=== PATIENT | male | born 1935 | race Caucasian/White ===

== ENCOUNTER 2017-08-10 22:56 | Inpatient (IN) ==
--- NOTE | 2017-08-10 23:56 | Emergency Department Note ---
START Narrative - START START: I examined this patient and my medical decision-making was reviewed with the Resident Physician. I agree with the documented findings, disposition and treatment plan as described except to the extent set forth below. 81 year old male with HX of slurred speech and weakness on the right sided of his upper extremity that started at 2119 today, but all the symptoms have compeletely resolved. Patient denies history of strokes. He canchola shave a history of MIs. Keynet states that he was concerned he had a stroke. Laverne was given 2; 81mg ASA . Laverne states that he is having difficulty with word finding at this time. WE will do a TIA r/o CVA workup and kash admit ot medicine.
--- NOTE | 2017-08-11 00:04 | Emergency Department Note ---
Disposition Clinical Impression: Transient cerebral ischemia Qualifiers: Transient cerebral ischemia type: unspecified Qualified Code(s): G45.9 - Transient cerebral ischemic attack, unspecified Disposition: Admitted As Inpatient Condition: Fair Forms: ED Satisfaction Letter Time of Disposition: 01:21 Neuro HPI - General Chief Complaint: ED Neuro Symptoms/Deficit Stated Complaint: rt sided weakness Time Seen by Provider: 08/10/17 23:06 Source: patient, family Limitations: no limitations Nursing Notes Reviewed: Yes Vital Signs Reviewed: Yes - History of Present Illness HPI Narrative: Patient is an 81-year-old male who presents to [facility] ED with a chief complaint of right upper extremity weakness as well as difficulty with word finding and slurred speech. Patient states his symptoms started around 9:30 PM this evening. States his symptoms have pretty much resolved at this time except for the difficulty with word finding. Denies any prior history of CVA. Past medical history significant for AAA with repair, cholecystectomy. Patient is on metoprolol as well as a statin. Patient denies any nausea, vomiting, fever or chills. No recent upper respiratory symptoms, chest pain, difficulty breathing, abdominal pain, problems with urination and bowel movements. Onset of Symptoms Date: 08/11/17 Onset of Symptoms Time: 21:00 Symptom Onset Unknown: No Timing confirmed by: family member Location: speech, right arm History of same: No Severity: mild Quality: weakness Symptoms Improving: No Improves with: none Worsens with: none Associated symptoms: Reports: weakness. Denies: chest pain, cough, fever/chills , headaches, nausea/vomiting, shortness of breath Treatments Prior to Arrival: none - Related Data Allergies/Adverse Reactions: Allergies Allergy/AdvReac Type Severity Reaction Status Date / Time No Known Allergies Allergy Verified 08/10/17 22:58 All systems ED: reviewed and negative except as stated. Past Medical History - Past Medical History Attestation: Yes The following information was validated with the patient. Source: patient Medical history: Reports: aortic aneurysm, hypertension, myocardial infarction Psychiatric history: Reports: no psych history - Social History Smoking Status: Current some day smoker Smokeless Tobacco Status: Yes Alcohol use: Reports: occasionally Physical Exam - General Limitations: no limitations General appearance: alert, in no apparent distress - Head Head exam: atraumatic, normocephalic, normal inspection - Eye Eye exam: Present: normal appearance, EOMI - ENT ENT exam: normal exam, normal oropharynx, mucous membranes moist - Neck Neck exam: Present: normal inspection, full ROM, trachea midline - Chest Chest inspection: Present: normal inspection, symmetric chest wall rise - Respiratory Respiratory exam: Present: normal lung sounds bilaterally - Cardiovascular Cardiovascular exam: Present: bradycardia, normal heart sounds - Abdominal Exam Abdominal exam: Present: soft, Non-Tender. Absent: tenderness, distention, guarding, rebound, rigidity - Extremities Exam Extremities exam: Present: normal inspection, full ROM. Absent: tenderness, pedal edema - Back Exam Back exam: Present: normal inspection - Neurological Exam Neurological exam: Present: alert, oriented X3, CN II-XII intact, normal gait. Absent: motor sensory deficit - Expanded Neurological Exam Patient oriented to: Present: person, place, time Speech: Present: expressive aphasia Cranial nerves: EOM function (II, III, IV, ): Normal, facial sensation (V): Normal, facial palsy (VII): Normal, spinal accessory function (XI): Normal, tongue deviation (XII): Normal Cerebellar function: finger to nose: Normal, heel to monsivais: Normal Cerebellar function: normal gait, Romberg normal Motor strength - LUE: 5/5 Motor strength - RUE: 5/5 Motor strength - LLE: 5/5 Motor strength - RLE: 5/5 Upper motor neuron exam: lokesh neglect: Absent bilaterally, pronator drift: Absent bilaterally Sensory exam upper extremity: light touch: Normal Sensory exam lower extremity: light touch: Normal Coma Scale Eye Opening: Spontaneous Coma Scale Motor Response: Obeys Commands Coma Scale Verbal Response: Oriented Coma Scale Total: 15 - Psychiatric Psychiatric exam: Present: normal affect, normal mood - Skin Skin exam: Present: warm, dry, intact, normal color Course Course Narrative: Patient seen and examined. Preoperatively weakness that has since resolved. Still has mild word finding difficulties. However and able to answer most questions appropriately. CVA workup started. Last known well was at 9:30 PM. However with his rapidly improving symptoms, I do not feel he would benefit from TPA administration. - Reevaluation(s) Reevaluation #1: A d-dimer level was accidentally ordered on this patient and canceled 2 minutes later. However the level was still processed and actually came back elevated at over 2000. However, patient has not had any symptoms of difficulty breathing or chest pain. He has been saturating over 95% on room air. I do not feel this patient has a pulmonary embolus or require CT scanning of the chest. Patient's CT of the head negative. Patient is not on any blood thinning medications normally. He did receive 2 baby aspirin prior to arrival. Will order another 2 baby aspirin to complete the 324 mg dose. Discussed admission with hospitalist Dr. Guevara who has accepted patient for admission. Time: 01:16 Vital Signs Temperature 98.3 F 08/10/17 23:11 Pulse Rate 55 08/10/17 23:11 Respiratory Rate 20 08/10/17 23:11 Blood Pressure 136/71 08/10/17 23:11 O2 Sat by Pulse Oximetry 97 08/10/17 23:11 Temperature 98.3 F 08/10/17 23:11 Pulse Rate 50 08/11/17 00:13 Respiratory Rate 12 08/11/17 00:13 Blood Pressure 127/68 08/11/17 00:13 O2 Sat by Pulse Oximetry 96 08/11/17 00:13 Oxygen Delivery Oxygen Delivery Room Air Neuro Symptoms/Deficit - Medical Records Medical records reviewed: Yes I reviewed the patient's medical records. - Lab Data Lab results reviewed: Yes I reviewed the patient's lab results. Result diagrams: 08/11/17 00:08 08/11/17 00:08 Lab Results 08/11/17 08/11/17 08/11/17 Range/Units 00:08 00:08 00:08 WBC 7.3 (4.3-11.1) K/mcL RBC 4.55 (4.19-5.50) M/mcL Hgb 14.3 (12.9-16.9) g/dL Hct 42.8 (37.5-50.1) % MCV 94.1 (83.0-100.0) fL MCH 31.4 (28.0-33.3) pg MCHC 33.4 (31.6-35.5) g/dL RDW 13.1 (11.5-14.5) % Plt Count 183 (140-400) K/mcL MPV 10.2 (9.4-12.4) fL Immature Gran % 0.3 (0-4) % Seg Neutrophils % 48.3 % Lymphocytes % 34.0 % Monocytes % 11.9 % Eosinophils % 4.1 % Basophils % 1.4 % Neutrophils # 3.5 (1.6-8.9) K/mcL Lymphocytes # 2.5 (0.6-4.6) K/mcL Monocytes # 0.9 (0.0-1.3) K/mcL Eosinophils # 0.3 (0.0-0.6) K/mcL Basophils # 0.1 (0.0-0.2) K/mcL PT 12.0 (9.4-12.1) Seconds INR 1.1 APTT 27.7 (26.0-36.0) Seconds D-Dimer 2044 H (0-500) ng/mLFEU Sodium 141 (136-145) mEq/L Potassium 4.6 H (3.5-4.5) mEq/L Chloride 105 (98-109) mEq/L Carbon Dioxide 29 (19-29) mEq/L BUN 29 H (8-26) mg/dL Creatinine 1.32 H (0.72-1.25) mg/dL Est GFR ( Amer) > 60 (> 60) Est GFR (Non-Af Amer) 52 L (> 60) BUN/Creatinine Ratio 22 (6-26) Glucose 97 (70-99) mg/dL Calculated Osmolality 298 (280-300) Calcium 9.9 (8.6-10.8) mg/dL Troponin I (0-0.03) ng/mL 08/11/17 Range/Units 00:08 WBC (4.3-11.1) K/mcL RBC (4.19-5.50) M/mcL Hgb (12.9-16.9) g/dL Hct (37.5-50.1) % MCV (83.0-100.0) fL MCH (28.0-33.3) pg MCHC (31.6-35.5) g/dL RDW (11.5-14.5) % Plt Count (140-400) K/mcL MPV (9.4-12.4) fL Immature Gran % (0-4) % Seg Neutrophils % % Lymphocytes % % Monocytes % % Eosinophils % % Basophils % % Neutrophils # (1.6-8.9) K/mcL Lymphocytes # (0.6-4.6) K/mcL Monocytes # (0.0-1.3) K/mcL Eosinophils # (0.0-0.6) K/mcL Basophils # (0.0-0.2) K/mcL PT (9.4-12.1) Seconds INR APTT (26.0-36.0) Seconds D-Dimer (0-500) ng/mLFEU Sodium (136-145) mEq/L Potassium (3.5-4.5) mEq/L Chloride (98-109) mEq/L Carbon Dioxide (19-29) mEq/L BUN (8-26) mg/dL Creatinine (0.72-1.25) mg/dL Est GFR ( Amer) (> 60) Est GFR (Non-Af Amer) (> 60) BUN/Creatinine Ratio (6-26) Glucose (70-99) mg/dL Calculated Osmolality (280-300) Calcium (8.6-10.8) mg/dL Troponin I 0.00 (0-0.03) ng/mL - Radiology Data Radiology results reviewed: Yes I reviewed the patient's radiology results. Head CT 08/10/17 23:27 IMPRESSION: No acute intracranial abnormality. Specifically, no CT evidence of an acute infarct. D/ / Joselito Vazquez MD / Joselito Vazquez MD Interpreting Provider: Joselito Vazquez MD - EKG Data EKG attestation: Yes I reviewed and interpreted this EKG. EKG results narrative: EKG done at 20 3:00 shows sinus bradycardia with a first-degree AV block. Normal axis. No acute ST elevation or depression. Findings appear changed from prior EKG done 06/08/2001 with new 1st degree AV block.. NIH Stroke Scale - Level of Consciousness LOC: Alert - LOC Questions LOC Questions: Answers both correctly - LOC Commands LOC Commands: Performs both correctly - Best Gaze Best Gaze: Normal - Visual Visual: No visual loss - Facial Palsy Facial Palsy: Normal - Motor Arms Motor Arm-Left: No drift for 10 seconds Motor Arm-Right: No drift for 10 seconds - Motor Legs Motor Leg-Left: No drift for 5 seconds Motor Leg-Right: No drift for 5 seconds - Limb Ataxia Limb Ataxia: Absent of affected limb too weak to perform exam - Sensory Sensory: Normal - Best Language Best Language: Mild to moderate aphasia. Examiner can identify picture from response - Dysarthria Dysarthria: Normal - Extinction and Inattention Extinction and Inattention: Normal - NIHSS Total Score NIHSS Total Score: 1 TPA Checklist - LKW: 3-4.5 hrs Add. Warnings/Precautions Patient/family understanding: The patient/family members have been counseled and understood the risk, benefit , and alternatives of treatment.
[2017-08-11 00:17] LABS: Basophils # 0.1 K/mcL (0.0-0.2); Basophils % 1.4 %; Eosinophils # 0.3 K/mcL (0.0-0.6); Eosinophils % 4.1 %; Hematocrit 42.8 % (37.5-50.1); Hemoglobin 14.3 g/dL (12.9-16.9); Immature Granulocytes % 0.3 % (0-4); Lymphocytes # 2.5 K/mcL (0.6-4.6); Mean Corpuscular HGB Conc 33.4 g/dL (31.6-35.5); Mean Corpuscular Hemoglobin 31.4 pg (28.0-33.3); Mean Corpuscular Volume 94.1 fL (83.0-100.0); Mean Platelet Volume 10.2 fL (9.4-12.4); Monocytes # 0.9 K/mcL (0.0-1.3); Monocytes % 11.9 %; Neutrophils # 3.5 K/mcL (1.6-8.9); Platelet Count 183 K/mcL (140-400); Red Blood Count 4.55 M/mcL (4.19-5.50); Red Cell Distribution Width 13.1 % (11.5-14.5); Segmented Neutrophils % 48.3 %
[2017-08-11 00:23] LABS: INR 1.1
[2017-08-11 00:26] LABS: Activated Partial Thrombo Time 27.7 Seconds (26.0-36.0)
[2017-08-11 00:29] LABS: BUN/Creatinine Ratio 22 (6-26); Blood Urea Nitrogen 29 mg/dL (8-26); Calcium 9.9 mg/dL (8.6-10.8); Carbon Dioxide 29 mEq/L (19-29); Chloride 105 mEq/L (98-109); Glucose 97 mg/dL (70-99); Osmolality,Calculated 298 (280-300); Potassium 4.6 mEq/L (3.5-4.5); Sodium 141 mEq/L (136-145); eGFR For African Americans > 60 (> 60); eGFR For Non-African Americans 52 (> 60)
[2017-08-11] MEDS ORDERED: Aspirin 81 MG TAB.CHEW PO ONE (01:08)
[2017-08-11] MEDS ORDERED: Aspirin Enteric Coated 81 MG Tablet PO STA (01:36)
[2017-08-11] MEDS ORDERED: Aspirin 81 MG TAB.CHEW ONE (01:47)
[2017-08-11] MEDS ORDERED: *HR* Promethazine 25 MG/ML VIAL IVP PRN (02:54)
[2017-08-11] MEDS ORDERED: *HR* Morphine 2 MG/ML SYRINGE IVP PRN (02:54)
[2017-08-11] MEDS ORDERED: Ondansetron 4 MG/2 ML VIAL IVP PRN (02:54)
[2017-08-11] MEDS ORDERED: Acetaminophen 325 MG TABLET PO PRN (02:54)
[2017-08-11] MEDS ORDERED: *HR* HYDROcodone/Acet 5/325 mg TABLET PO PRN (02:54)
[2017-08-11] MEDS ORDERED: MOM Conc 10 ML UD.LIQ PO PRN (02:54)
[2017-08-11] MEDS ORDERED: Naloxone 0.4 MG/ML INJ IVP PRN (02:54)
--- NOTE | 2017-08-11 03:51 | Internal Med History&Physical ---
Date of Encounter: 08/11/17 Time of Encounter: 02:50 Assessment and Plan (1) Transient cerebral ischemia Current visit: Yes Status: Acute Will place the pt into Tele for observation He is not a candidate for tPA due to improving symptoms and time factor too Since he is ASA naive, will start him on ASA for now Reviewed CT of head - no acute infraction / hemorrhage Will get MRI of brain, 2 D Echo and Carotid doppler in AM Frequent neuro checks resume home med Statin check FLP in AM Qualifiers: Transient cerebral ischemia type: unspecified Qualified Code(s): G45.9 - Transient cerebral ischemic attack, unspecified (2) Hypertension, essential Current visit: Yes Status: Chronic resumed home meds (3) HLD (hyperlipidemia) Current visit: Yes Status: Chronic on statin Qualifiers: Hyperlipidemia type: unspecified Qualified Code(s): E78.5 - Hyperlipidemia , unspecified (4) Tobacco dependence Current visit: Yes Status: Acute counseled to quit smoking / chewing tobacco He refused for nicotine patch Internal Medicine - H&P: HPI Chief complaint: Slurred speech, Rt arm weakness Admitted From: Emergency Dept Plans for Post Hospital Care: Home History of present illness: Mr. Partida is a 81 year old male with known PMH of AAA repair, HTN, chronic tobacco dependence, HLD who presented to [facility] ED with a chief complaint of right upper extremity weakness as well as difficulty with word finding and slurred speech. Patient stated his symptoms started around 9: 30 PM this last night. States his symptoms have pretty much resolved by the time he came to ER except for the difficulty with word finding. Denies any prior history of CVA. When I examined him this morning at 2.45AM, he is alert, awake and O x3, denied any more speech / word finding difficulties. Past Med Surg Social Fam HX - Past Medical History Medical history: aortic aneurysm, hypertension, myocardial infarction Psychiatric history: no psych history - Past Surgical History Surgical History: angioplasty/stent, cholecystectomy - Social History Smoking Status: Current every day smoker (he used to smoke 1PPD unti last month.. Now he is chewing tobacco) Packs per day: 1 Smokeless Tobacco Status: Yes Alcohol use: occasionally Drug use: none - Family History Father Adopted: [place]: [place] Family Member Ethnicity: Non- Living Status: Age at : 77 Cause of : LIVER DISEASE Hx Family Cardiac Disorders: No Hx Family Respiratory Disorders: No Hx Family Cancer: No Hx Family GI Disorders: No Hx Family Genitourinary Disorders: No Hx Family Endocrine Disorder: No Hx Family Musculoskeletal Disorders: No Hx Family Neuromuscular Disorders: No Hx Family Neurologic Disorders: No Hx Family HEENT Disorders: No Hx Family Autoimmune Disorders: No Hx Family Reproductive Disorders: No Hx Family Psychosocial Disorders: No Hx Family Medical Disorders: No - Additional Family History Additional family history: Denied any strokes in the family Internal Medicine - H&P: Meds Simvastatin 80 mg PO DAILY 08/11/17 [History] Toprol Xl 25 mg PO DAILY 08/11/17 [History] 3 Allergy/AdvReac Type Severity Reaction Status Date / Time No Known Allergies Allergy Verified 08/10/17 22:58 All Systems PM: A 10-system review of systems was performed and is negative for pertinent findings except as documented above in the HPI. Review of systems: All the systems are reviewed everything is benign except the systems and symptoms I mentioned in the history of present illness - Constitutional Vitals: Temp Pulse Resp BP Pulse Ox 98.2 F 50 14 137/63 96 08/11/17 02:07 08/11/17 02:07 08/11/17 02:07 08/11/17 02:07 08/11/17 02:07 General appearance: Present: A&O X 3, no acute distress, answers questions appropriately - Head Head exam: Present: atraumatic, normal inspection - Respiratory Respiratory exam: Present: decreased breath sounds. Absent: rales, respiratory distress, rhonchi, wheezes - Cardiovascular Cardiovascular exam: Present: RRR, +S1, +S2. Absent: systolic murmur - GI/Abdominal GI/Abdominal exam: Present: soft. Absent: rebound, rigid - Extremities Exam Extremities exam: Absent: calf tenderness, pedal edema, tenderness - Back Exam Back exam: Absent: CVA tenderness (L), CVA tenderness (R) - Neurological Exam Neurological exam: Present: alert, CN II-XII intact, oriented X3, reflexes normal, no focal deficits, strengths equal and symetr throughout. Absent: pronater drift, facial droop, speech deficit - Psychiatric Psychiatric exam: Present: normal affect, normal mood Internal Med - H&P Results - Labs CBC & Chem 7: 08/11/17 00:08 08/11/17 00:08
[2017-08-11 04:58] LABS: Chol/HDL Ratio 3.6 (0-4.9)
[2017-08-11] MEDS: Aspirin Enteric Coated 81 MG Tablet PO SCH (07:31)
[2017-08-11] MEDS: Metoprolol XL (24 HR) Succ 25 MG TAB.ER.24H PO SCH (08:02)
[2017-08-11] MEDS ORDERED: Aspirin Enteric Coated 81 MG Tablet PO SCH (09:00)
--- NOTE | 2017-08-11 13:51 | Carotid Imaging Report ---
Carotid Duplex Patient Name:Avni Partida Order Number:[id number] Procedure Date:08/11/2017 Date:1935ge:81 yrs Gender:Male Location:[facility] Room #: [id number] Shoes Salesperson:Jose Elias Hunter TITA Referring MD:Cecile Guevara MD Reading MD:Jesu Call MD Primary Indications:TIA Risk Factors Yes/No Hypercholesterolemia Yes Smoking Current Yes Impressions: The bilateral carotid arteries are normal throughout. Recommendations: After imaging the patient returned to their room. Findings Carotid Duplex: Costa scale imaging combined with Doppler flow analysis suggests normal findings bilaterally. Right: The right proximal common carotid artery has a PSV of 82 cm/s and a EDV of 19 cm/s. The right mid common carotid artery has a PSV of 82 cm/s and a EDV of 14 cm/s. The right distal common carotid artery has a PSV of 78 cm/s and a EDV of 19 cm/s. The right bifurcation has a PSV of 56 cm/s and a EDV of 16 cm/s. The right proximal internal carotid artery has a PSV of 65 cm/s and a EDV of 16 cm/s. The right mid internal carotid artery has a PSV of 63 cm/s and a EDV of 21 cm/s. The right distal internal carotid artery has a PSV of 104 cm/s and a EDV of 31 cm/s. The right eca has a PSV of 129 cm/s and a EDV of 12 cm/s. The right vertebral artery has a PSV of 83 cm/s and a EDV of 23 cm/s. Left: The left proximal common carotid artery has a PSV of 86 cm/s and a EDV of 17 cm/s. The left mid common carotid artery has a PSV of 89 cm/s and a EDV of 22 cm/s. The left distal common carotid artery has a PSV of 82 cm/s and a EDV of 21 cm/s. The left bifurcation has a PSV of 71 cm/s and a EDV of 17 cm/s. The left proximal internal carotid artery has a PSV of 81 cm/s and a EDV of 16 cm/s. The left mid internal carotid artery has a PSV of 82 cm/s and a EDV of 26 cm/s. The left distal internal carotid artery has a PSV of 89 cm/s and a EDV of 24 cm/s. The left eca has a PSV of 111 cm/s and a EDV of 10 cm/s. The left vertebral artery has a PSV of 40 cm/s and a EDV of 10 cm/s. Carotid Results Right PSV EDV Assessment Proximal CCA 82 19 Normal Mid CCA 82 14 Normal Distal CCA 78 19 Normal Bifurcation 56 16 Normal Proximal ICA 65 16 Normal Mid ICA 63 21 Normal Distal ICA 104 31 Normal ECA 129 12 Normal Vertebral Artery 83 23 Normal Left PSV EDV Assessment Proximal CCA 86 17 Normal Mid CCA 89 22 Normal Distal CCA 82 21 Normal Bifurcation 71 17 Normal Proximal ICA 81 16 Normal Mid ICA 82 26 Normal Distal ICA 89 24 Normal ECA 111 10 Normal Vertebral Artery 40 10 Normal Ratio's Right ICA/CCA Ratio: 1.27 ICA/CCA Values: 104/82 Left ICA/CCA Ratio: 1.00 ICA/CCA Values: 89/89 Updated by Jesu Call MD on 08/11/2017 1:45:41 PM electronically signed on 08/11/2017 1:46:05 PM with status of Final
--- NOTE | 2017-08-11 16:03 | Event Note ---
Date of Encounter: 08/11/17 Time of Encounter: 15:55 Avni Partida is an 81-year-old male with past medical history hypertension and hyperlipidemia presented to [facility] on 08/11/2017 with complaints of right upper extreme weakness and slurred speech. Brain MRI showed acute CVA. He was admitted for further workup and treatment. 1. Acute CVA: Presented with right arm weakness and slurred speech. ASA given in ED. Brain MRI showed multiple small acute infarcts in the left frontal, lateral and occipital lobes. Bilateral carotid Dopplers normal. TTE with EF 60 %, no cardiac source of emboli. Symptoms now resolved and neurologically back to baseline. Continue ASA, statin. Neurology consulted. 2. DYLLAN: Cr 1.3; baseline appears normal. Trial small bolus. Monitor repeat CMP 3. Elevated D-dimer: D-dimer elevated at 4; unclear why lab was drawn. Denies chest pain, no shortness of breath. Unable to do chest CTA due to AK I. V/Q scan was low probability for pulmonary embolism 4. Hypertension: per hx. BP controlled. Cont home BB. MOnitor BP and titrate PRN 5. Pericardial effusion: Incidentally found. 08/11/17 TTE with a trivial inferior lateral pericardial effusion. Asymptomatic, denies chest pain, no shortness of breath.
[2017-08-11] MEDS ORDERED: 0.9 % Sodium Chloride 1,000 ML IVC ONE (16:04)
--- NOTE | 2017-08-11 18:20 | Neurology - Consult Note ---
Date of Encounter: 08/11/17 Time of Encounter: 18:16 Assessment and Plan (1) CVA (cerebral vascular accident) Current Visit: Yes Status: Acute Patient with acute ischemic infarct involving the left MCA territory, thrombo- embolic or embolic in etiology. No history of atrial fibrillation. Stroke work up is complete baring MRA of brain to confirm if there is stenosis of left MCA. Continue Aspirin 81mg daily and statin therapy. Anticipate patient will likely be released tomorrow. Qualifiers: CVA mechanism: thrombosis Precerebral and cerebral artery: middle cerebral artery Laterality of affected vessel: left Qualified Code(s): I63.312 - Cerebral infarction due to thrombosis of left middle cerebral artery History of Present Illness Chief complaint: right sided weakness and speech difficulty HPI: Mr. Partida is a 81 year old male with PMH significant for CAD, history of aortic valve repair, tobacco use, quit 2-3 months ago who developed acute onset of right sided arm weakness, and speech difficulty yesterday. But the time he arrived to ER here at [facility], his symptoms improved significantly. Determined not to be a candidate for tPA thrombolysis. MRI of brain confirmed ischemic infarct involving the left MCA territory. patient started on Aspirin 81mg daily. carotid artery duplex showed no significant ICA stenosis. Echocardiography showed Impressions: LVEF 60-65%.Normal LV chamber size, wall thickness and function. Mild left ventricular diastolic dysfunction.Normal right ventricular structure and function.No evidence of PFO with agitated saline contrast.No evidence of pulmonary hypertension. No significant valvular dysfunction.There is a trivial inferolateral pericardial effusion present. Patient now reports more than 90% of improvement of his symptoms. Speech is back to normal. Past Med Surg Social Fam HX - Past Medical History Medical history: aortic aneurysm, hypertension, myocardial infarction Psychiatric history: no psych history - Past Surgical History Surgical History: angioplasty/stent, cholecystectomy - Social History Smoking Status: Current every day smoker (he used to smoke 1PPD unti last month.. Now he is chewing tobacco) Packs per day: 1 Smokeless Tobacco Status: Yes Alcohol use: occasionally Drug use: none - Family History Father Adopted: [place]: [place] Family Member Ethnicity: Non- Living Status: Age at : 76 Cause of : LIVER DISEASE Hx Family Cardiac Disorders: No Hx Family Respiratory Disorders: No Hx Family Cancer: No Hx Family GI Disorders: No Hx Family Genitourinary Disorders: No Hx Family Endocrine Disorder: No Hx Family Musculoskeletal Disorders: No Hx Family Neuromuscular Disorders: No Hx Family Neurologic Disorders: No Hx Family HEENT Disorders: No Hx Family Autoimmune Disorders: No Hx Family Reproductive Disorders: No Hx Family Psychosocial Disorders: No Hx Family Medical Disorders: No Medications and Allergies Metoprolol XL (24 HR) Succ [Toprol XL] 25 mg PO DAILY 08/11/17 [History] Simvastatin [Zocor] 40 mg PO DAILY 08/11/17 [History] 3 Allergy/AdvReac Type Severity Reaction Status Date / Time No Known Allergies Allergy Verified 08/10/17 22:58 All Systems: A 10-system review of systems was performed and is negative for pertinent findings except as documented above in the HPI. Physical Examination - Vital Signs Vital Signs: Initial Vital Signs Temp Pulse Resp BP Pulse Ox 98.3 F 55 20 136/71 97 08/10/17 23:11 08/10/17 23:11 08/10/17 23:11 08/10/17 23:11 08/10/17 23:11 - Constitutional General appearance: comfortable - Neurologic Sensorimotor examination: intact Detailed motor examination: grossly full strength in all extremities Motor examination - right side: 5/5: deltoids, biceps, triceps, wrist flexion, wrist extension, staker surveying, hip flexors, tibialis Anterior, quadriceps, toe extension (EHL), plantarflexion Motor examination - left side: 5/5: deltoids, biceps, triceps, wrist flexion, wrist extension, hip flexors, staker surveying, quadriceps, tibialis Anterior, toe extension (EHL), plantarflexion Detailed sensory examination: intact Posture: other (Normal) Reflex and gait examination: intact Reflexes: Biceps: 1+, Triceps: 1+, Brachioradialis: 1+, Patella: 1+, Achilles: 1 + Mental Status Examination: awake, alert, oriented to person, oriented to place, oriented to time, follows commands appropriately, answers questions appropriately, no agnosia, no aphasia, no aproxia Cranial nerve examination: PERRL, EOMI, visual hoang intact, corneal reflexes brisk symmetrically, sensory to face intact, mastication intact, no facial asymmetry is present, no dysarthria, hearing is intact symmetrically, soft palate elevates bilaterally upon phonation, gag reflex intact, flexes SCM and trapezius muscles symmetrically with full power, tongue protrudes midline, no atrophy or facial fasiculations present Results - Laboratory Findings CBC and BMP: 08/11/17 00:08 08/11/17 00:08 Abnormal lab findings: Abnormal lab results D-Dimer 2044 ng/mLFEU (0-500) H 08/11/17 00:08 Potassium 4.6 mEq/L (3.5-4.5) H 08/11/17 00:08 BUN 29 mg/dL (8-26) H 08/11/17 00:08 Creatinine 1.32 mg/dL (0.72-1.25) H 08/11/17 00:08 Est GFR (Non-Af Amer) 52 (> 60) L 08/11/17 00:08 POC Glucose 96 (58-89) H 08/11/17 16:18 HDL Cholesterol 36 mg/dL (40-59) L 08/11/17 03:58 Consult Discharge Plan - Plan Referrals: Fernando De Paz MD [Primary Care Provider] -
--- NOTE | 2017-08-11 19:09 | Electrocardiograph Report ---
[place] [id number] Test Date: 2017-08-10 Pat Name: Avni Partdia Department: 103 Room: 3B54 Gender: M Engineering Recruiter: LAURITA : 1935 Requested By: Kathy Ball Order Number: [id number] Reading MD: Reuben Newman MD Measurements Intervals [place] Rate: 53 P: 91 WI: 231 QRS: 58 QRSD: 102 T: 63 QT: 402 QTc: 384 Interpretive Statements SINUS BRADYCARDIA WITH FIRST DEGREE AV BLOCK Electronically Signed On 08-11-2017 19:08:26 EDT by Reuben Newman MD
[2017-08-11] MEDS: *HR* Heparin 5,000 UNIT/ML VIAL SQ SCH (22:36)
[2017-08-12] MEDS: *HR* Heparin 5,000 UNIT/ML VIAL SQ SCH (05:00)
[2017-08-12 05:48] LABS: Hematocrit 41.3 % (37.5-50.1); Hemoglobin 14.1 g/dL (12.9-16.9); Mean Corpuscular HGB Conc 34.1 g/dL (31.6-35.5); Mean Corpuscular Volume 93.7 fL (83.0-100.0); Mean Platelet Volume 10.2 fL (9.4-12.4); Platelet Count 168 K/mcL (140-400); Red Blood Count 4.41 M/mcL (4.19-5.50); Red Cell Distribution Width 13.1 % (11.5-14.5)
[2017-08-12 06:00] LABS: Hemoglobin A1C 5.4 %
[2017-08-12 06:04] LABS: Alanine Aminotransferase 20 Units/L (0-55); Albumin 3.1 g/dL (3.5-5.0); Alkaline Phosphatase 68 Units/L (38-126); Aspartate Amino Transferase 22 Units/L (5-34); BUN/Creatinine Ratio 22 (6-26); Bilirubin,Total 0.5 mg/dL (0.2-1.2); Blood Urea Nitrogen 23 mg/dL (8-26); Calcium 9.1 mg/dL (8.6-10.8); Carbon Dioxide 27 mEq/L (19-29); Chloride 109 mEq/L (98-109); Globulin 3.2 g/dL (2.4-3.5); Glucose 93 mg/dL (70-99); Osmolality,Calculated 295 (280-300); Potassium 4.3 mEq/L (3.5-4.5); Sodium 141 mEq/L (136-145); Total Protein 6.3 g/dL (6.0-8.3); eGFR For African Americans > 60 (> 60); eGFR For Non-African Americans > 60 (> 60)
[2017-08-12] MEDS: Metoprolol XL (24 HR) Succ 25 MG TAB.ER.24H PO SCH (08:02)
[2017-08-12] MEDS: Aspirin Enteric Coated 81 MG Tablet PO SCH (08:02)
--- NOTE | 2017-08-12 10:11 | Discharge Summary ---
Date of Encounter: 08/12/17 Time of Encounter: 10:04 - Discharge Diagnosis (1) CVA (cerebral vascular accident) Priority: Primary Status: Acute Comments: Avni Partida is an 81-year-old male with past medical history hypertension and hyperlipidemia who presented to [facility] on 08/11/2017 with complaints of right upper extreme weakness and slurred speech. Brain MRI showed acute CVA; evaluated by Neurology who recommended medical management. He was discharged home in stable condition with outpatient follow-up. 1. Acute CVA: Presented with right arm weakness and slurred speech. ASA given in ED. Brain MRI showed multiple small, acute infarcts in the left frontal, lateral and occipital lobes. Brain/head MR non-acute. Bilateral carotid Dopplers normal. TTE with EF 60%, no cardiac source of emboli. Symptoms now resolved and neurologically back to baseline. LDL 80, Hgb A1c 5.4. Continue ASA , statin. Neurology followed. 2. DYLLAN: Cr 1.3; baseline appears normal. Cr normalized weith IV fluids. Recommend repeat CMP with PCP. 3. Elevated D-dimer: D-dimer elevated at 2043. Denied chest pain, no shortness of breath. Unable to do chest CTA due to AK I. V/Q scan with low probability for pulmonary embolism 4. Hypertension: per hx. BP controlled. Cont home BB. Can follow-up with PCP 5. Pericardial effusion: Incidentally found. 08/11/17 TTE with a trivial inferior lateral pericardial effusion. Asymptomatic, denies chest pain, no shortness of breath. Recommended outpatient follow-up with PCP and/or Cardiology for further monitoring Qualifiers: CVA mechanism: thrombosis Precerebral and cerebral artery: middle cerebral artery Laterality of affected vessel: left Qualified Code(s): I63.312 - Cerebral infarction due to thrombosis of left middle cerebral artery (2) Hypertension, essential Priority: Primary Status: Chronic (3) HLD (hyperlipidemia) Priority: Primary Status: Chronic Qualifiers: Hyperlipidemia type: unspecified Qualified Code(s): E78.5 - Hyperlipidemia , unspecified (4) Tobacco dependence Priority: Primary Status: Acute - Discharge Medications Prescriptions: Aspirin Enteric Coated [Aspirin EC] 81 mg PO DAILY #30 tablet.dr Home Medications: Metoprolol XL (24 HR) Succ [Toprol Xl] 25 mg PO DAILY 08/11/17 [History] Simvastatin [Zocor] 40 mg PO DAILY 08/11/17 [History] Aspirin Enteric Coated [Aspirin EC] 81 mg PO DAILY #30 tablet. 08/12/17 [Rx] Allergies/Adverse Reactions: 3 Allergy/AdvReac Type Severity Reaction Status Date / Time No Known Allergies Allergy Verified 08/10/17 22:58 Procedures/tests Complete & Pending: Procedures Performed prior 72 hours Category Date Time Status MR angio head wo con [MR] Routine MRI 08/11/17 18:27 Completed MR angio head wo/w con [MR] Routine MRI 08/12/17 10:02 Ordered Date of admission: 08/11/17 16:23 Primary care physician: Fernando De Paz MD Consults: 08/11/17 16:41 Consult to Physical Therapy [CONS] Routine Comment: Evaluate, develop and implement POC Reason for Consult: Acute CVA OT [Consult to Occupational Therapy] [CONS] Routine Comment: Evaluate, develop and implement POC Reason for Consult: Acute CVA Discharging clinician: Kathy Ball Anticipated date of discharge: 08/12/17 - Patient Status Disposition: Home, Self-Care Condition: Good Functional capacity at discharge: independent ambulation Overall status at discharge: patient is back to baseline - Discharge Instructions Follow Up With: Fernando De Paz MD [Primary Care Provider] - 08/18/17 11:00 am - Diet and Activity Activity: resume usual activities as tolerated Diet: low fat, low cholesterol Interval History: Seen and examined at bedside. Patient says he feels back to baseline and wants to go home today. No numbness tingling, no double or blurred vision. No weakness. Discussed smoking cessation with him strongly encouraged. No chest pain, no shortness of breath no abdominal pain and nausea vomiting or diarrhea. Hospital course: See assessment and plan for hospital course Time spent discussing smoking cessation with patient: 3 to 10 minutes - Time Spent with Patient Total time spent providing and/or coordinating discharge services: Greater than 30 minutes (36 minutes spent on discharge) - Constitutional Vitals: Temp Pulse Resp BP Pulse Ox 98.1 F 56 17 117/64 94 08/12/17 06:58 08/12/17 06:58 08/12/17 06:58 08/12/17 06:58 08/12/17 06:58 General appearance: Present: A&O X 3, no acute distress, answers questions appropriately - Head Head exam: Present: atraumatic, normocephalic - Eye Eye exam: Present: PERRL, conjuntiva pink, sclera anicteric Pupils: Present: PERRL - Neck Neck exam general surgery: Present: supple, trachea midline. Absent: lymphadenopathy - Respiratory Respiratory exam: Present: CTAB. Absent: accessory muscle use, rales, rhonchi, wheezes - Cardiovascular Cardiovascular exam: Present: RRR, +S1, +S2. Absent: diastolic murmur, gallop, rubs, systolic murmur - GI/Abdominal GI/Abdominal exam: Present: normal bowel sounds, soft, no peritoneal signs. Absent: distended, tenderness - Extremities Exam Extremities exam: Present: warm, radial pulses palpable and symmetrical. Absent : calf tenderness, cyanotic, pedal edema - Neurological Exam Neurological exam: Present: CN II-XII intact, oriented X3, no focal deficits. Absent: pronater drift, facial droop, speech deficit - Skin Skin exam: Present: dry, intact
[2017-08-12 10:50] VITALS: BP 129/73
== END 2017-08-12 12:00 | disposition home or self-care (01) | DRG 65 ==
LOC: 3BNU 22:56 → EMEROO 22:56 → 3BNU 08-11 01:54
PROVIDERS: ADMIT Family Medicine; ATTEND Registered Nurse

== ENCOUNTER 2020-10-07 09:20 | Inpatient (IN) ==
[2020-10-07] MEDS ORDERED: Aspirin 81 MG TAB.CHEW PO ONE (09:24)
[2020-10-07 09:47] LABS: Basophils # 0.1 K/mcL (0.0-0.2); Basophils % 1.2 %; Eosinophils # 0.6 K/mcL (0.0-0.6); Eosinophils % 7.9 %; Hematocrit 45.6 % (37.5-50.1); Hemoglobin 15.3 g/dL (12.9-16.9); Immature Granulocytes % 0.3 % (0-4); Lymphocytes # 1.6 K/mcL (0.6-4.6); Mean Corpuscular HGB Conc 33.6 g/dL (31.6-35.5); Mean Corpuscular Volume 98.5 fL (83.0-100.0); Mean Platelet Volume 10.7 fL (9.4-12.4); Monocytes # 0.8 K/mcL (0.0-1.3); Monocytes % 9.6 %; Neutrophils # 4.8 K/mcL (1.6-8.9); Platelet Count 166 K/mcL (140-400); Red Blood Count 4.63 M/mcL (4.19-5.50); Red Cell Distribution Width 12.6 % (11.5-14.5); White Blood Count 7.8 K/mcL (4.3-11.1)
[2020-10-07 09:54] LABS: INR 1.1
[2020-10-07 09:57] LABS: Activated Partial Thrombo Time 33.8 Seconds (26.0-36.0)
[2020-10-07 10:07] LABS: BUN/Creatinine Ratio 21 (6-26); Blood Urea Nitrogen 23 mg/dL (8-23); Calcium 9.2 mg/dL (8.6-10.3); Carbon Dioxide 27 mEq/L (23-29); Chloride 107 mEq/L (98-107); Glucose 90 mg/dL (70-105); Osmolality,Calculated 293 (280-300); Potassium 4.2 mEq/L (3.5-5.1); Sodium 140 mEq/L (136-145); Troponin I < 0.03 ng/mL (< 0.04); eGFR For African Americans > 60 (> 60); eGFR For Non-African Americans > 60 (> 60)
[2020-10-07] MEDS ORDERED: Naloxone 0.4 MG/ML INJ IVP PRN (11:15)
[2020-10-07] MEDS ORDERED: Nitroglycerin 0.4 MG TAB.SUBL SL PRN (12:07)
[2020-10-07] MEDS: *HR* Heparin 5,000 UNIT/ML VIAL SQ SCH (16:56)
[2020-10-07] MEDS ORDERED: GI Cocktail 40 ML EACH PO ONE (23:28)
[2020-10-08 01:12] LABS: Estimated Average Glucose 120 mg/dl; Hemoglobin A1C 5.8 %
[2020-10-08 01:30] LABS: Chol/HDL Ratio 3.3 (0-4.9)
[2020-10-08] MEDS: Ondansetron ODT 4 MG TAB.RAPDIS SL PRN ×2 (03:39→20:44)
[2020-10-08] MEDS ORDERED: Naloxone 0.4 MG/ML INJ IVP PRN (04:24)
[2020-10-08 04:57] LABS: Albumin 3.9 g/dL (3.5-5.7); Albumin/Globulin Ratio 1.4 (1.1-2.2); Bilirubin,Direct 0.1 mg/dL (0.0-0.2); Bilirubin,Indirect 0.5 mg/dL (0.0-1.0); Bilirubin,Total 0.6 mg/dL (0.3-1.0); Globulin 2.8 g/dL (2.4-3.5); Total Protein 6.7 g/dL (6.4-8.9)
[2020-10-08] MEDS: *HR* Heparin 5,000 UNIT/ML VIAL SQ SCH ×2 (05:02→18:12)
[2020-10-08] MEDS: Aspirin Enteric Coated 81 MG Tablet PO SCH (09:03)
[2020-10-08] MEDS: Metoprolol XL (24 HR) Succ 25 MG TAB.ER.24H PO SCH (09:03)
[2020-10-08] MEDS: 0.9 % Sodium Chloride 1,000 ML IVC SCH ×2 (10:49→23:04)
[2020-10-08] MEDS: MetroNIDAZOLE 500 MG/100 ML 500 MG/100 ML BAG IVPB SCH ×2 (10:49→18:12)
[2020-10-09] MEDS: MetroNIDAZOLE 500 MG/100 ML 500 MG/100 ML BAG IVPB SCH ×3 (02:37→18:58)
[2020-10-09] MEDS: *HR* Heparin 5,000 UNIT/ML VIAL SQ SCH ×2 (05:13→16:47)
[2020-10-09] MEDS ORDERED: Regadenoson 0.4 MG/5 ML SYRINGE IVP ONE (05:57)
[2020-10-09] MEDS: Metoprolol XL (24 HR) Succ 25 MG TAB.ER.24H PO SCH (10:55)
[2020-10-09] MEDS: Aspirin Enteric Coated 81 MG Tablet PO SCH (10:55)
[2020-10-09] MEDS: 0.9 % Sodium Chloride 1,000 ML IVC SCH (20:07)
[2020-10-10] MEDS: MetroNIDAZOLE 500 MG/100 ML 500 MG/100 ML BAG IVPB SCH ×3 (03:18→17:50)
[2020-10-10] MEDS: *HR* Heparin 5,000 UNIT/ML VIAL SQ SCH ×2 (06:01→17:30)
[2020-10-10] MEDS: 0.9 % Sodium Chloride 1,000 ML IVC SCH ×2 (11:30→23:06)
[2020-10-10] MEDS ORDERED: hydrALAZINE 10 MG TABLET PO PRN (15:02)
[2020-10-10] MEDS: Aspirin Enteric Coated 81 MG Tablet PO SCH (15:11)
[2020-10-10] MEDS: Metoprolol XL (24 HR) Succ 25 MG TAB.ER.24H PO SCH (15:11)
[2020-10-10 19:12] LABS: Adenovirus Not Detected (Not Detect); Bordetella Pertussis Not Detected (Not Detect); Chlamydophila pneumoniae Not Detected (Not Detect); Coronavirus 229E Not Detected (Not Detect); Coronavirus HKU1 Not Detected (Not Detect); Coronavirus NL63 Not Detected (Not Detect); Coronavirus OC43 Not Detected (Not Detect); Human Metapneumovirus Not Detected (Not Detect); Human Rhinovirus/Enterovirus Not Detected (Not Detect); Influenza A Subtype 2009 H1 Not Detected (Not Detect); Influenza B Not Detected (Not Detect); Mycoplasma pneumoniae Not Detected (Not Detect); Parainfluenza Virus 1 Not Detected (Not Detect); Parainfluenza Virus 2 Not Detected (Not Detect); Parainfluenza Virus 3 Not Detected (Not Detect); Parainfluenza Virus 4 Not Detected (Not Detect); Respiratory Syncytial Virus Not Detected (Not Detect); SARS-CoV-2 Not Detected (Not Detect)
[2020-10-10] MEDS ORDERED: *HR* Propofol 200 MG/20 ML VIAL IVP ONE (21:00)
[2020-10-10] MEDS ORDERED: *HR* FentaNYL (PF) 100 MCG/2 ML VIAL ONE (21:00)
[2020-10-10] MEDS ORDERED: *HR* Rocuronium Bromide 50 MG/5 ML VIAL ONE (21:01)
[2020-10-10] MEDS ORDERED: *HR* Succinylcholine 200 MG/10 ML VIAL IVP ONE (21:01)
[2020-10-10] MEDS ORDERED: Lidocaine -MPF 2% 2 ML VIAL ONE (21:01)
[2020-10-10] MEDS ORDERED: Ondansetron 4 MG/2 ML VIAL IVP PRN (21:24)
[2020-10-10] MEDS ORDERED: *HR* OxyCODONE Immed Rel 5 MG TABLET PO PRN (21:24)
[2020-10-10] MEDS ORDERED: *HR* PHENYLEPHRINE 1,000 MCG/10 ML SYRINGE IVP ONE (21:49)
[2020-10-10] MEDS: *HR* HYDROmorphone PF 0.5 MG/0.5 ML SYRINGE IVP PRN ×4 (22:37→23:01)
[2020-10-10] MEDS ORDERED: *HR* Labetalol 20 MG/4 ML SYRINGE IVP ONE (22:51)
[2020-10-10] MEDS: *HR* Labetalol 20 MG/4 ML SYRINGE IVP PRN ×2 (22:54→23:02)
[2020-10-10] MEDS ORDERED: *HR* Metoprolol 5 MG/5 ML VIAL IVP ONE (22:58)
[2020-10-10] MEDS ORDERED: Ondansetron 4 MG/2 ML VIAL ONE (22:58)
[2020-10-10] MEDS ORDERED: Dexamethasone 4 MG/ML VIAL ONE (22:58)
[2020-10-11] MEDS ORDERED: Naloxone 0.4 MG/ML INJ IVP PRN (02:15)
[2020-10-11] MEDS ORDERED: hydrALAZINE 10 MG TABLET PO PRN (02:15)
[2020-10-11] MEDS ORDERED: *HR* OxyCODONE Immed Rel 5 MG TABLET PO PRN (02:15)
[2020-10-11] MEDS ORDERED: Ondansetron ODT 4 MG TAB.RAPDIS SL PRN (02:15)
[2020-10-11] MEDS ORDERED: Nitroglycerin 0.4 MG TAB.SUBL SL PRN (02:15)
[2020-10-11] MEDS ORDERED: Ondansetron 4 MG/2 ML VIAL IVP PRN (02:15)
[2020-10-11] MEDS: MetroNIDAZOLE 500 MG/100 ML 500 MG/100 ML BAG IVPB SCH ×4 (02:49→20:53)
[2020-10-11] MEDS: *HR* Heparin 5,000 UNIT/ML VIAL SQ SCH ×2 (05:34→17:34)
[2020-10-11] MEDS: 0.9 % Sodium Chloride 1,000 ML IVC SCH ×2 (05:52→23:56)
[2020-10-11 10:18] LABS: Basophils % 0.3 %; Eosinophils % 0.3 %; Hematocrit 46.9 % (37.5-50.1); Hemoglobin 15.9 g/dL (12.9-16.9); Immature Granulocytes % 0.4 % (0-4); Lymphocytes # 0.9 K/mcL (0.6-4.6); Lymphocytes % 8.4 %; Mean Corpuscular HGB Conc 33.9 g/dL (31.6-35.5); Mean Corpuscular Hemoglobin 32.9 pg (28.0-33.3); Mean Corpuscular Volume 97.1 fL (83.0-100.0); Mean Platelet Volume 10.5 fL (9.4-12.4); Monocytes # 0.9 K/mcL (0.0-1.3); Monocytes % 7.9 %; Neutrophils # 9.2 K/mcL (1.6-8.9); Platelet Count 153 K/mcL (140-400); Red Blood Count 4.83 M/mcL (4.19-5.50); Red Cell Distribution Width 12.4 % (11.5-14.5); Segmented Neutrophils % 82.7 %; White Blood Count 11.1 K/mcL (4.3-11.1)
[2020-10-11] MEDS: Aspirin Enteric Coated 81 MG Tablet PO SCH (10:21)
[2020-10-11] MEDS: Metoprolol XL (24 HR) Succ 25 MG TAB.ER.24H PO SCH (10:21)
[2020-10-11] MEDS: Acetaminophen IV 1,000 MG/100 ML BAG IVPB SCH ×3 (14:25→23:57)
[2020-10-12] MEDS: MetroNIDAZOLE 500 MG/100 ML 500 MG/100 ML BAG IVPB SCH ×3 (03:53→20:15)
[2020-10-12] MEDS: Acetaminophen IV 1,000 MG/100 ML BAG IVPB SCH ×3 (05:51→16:45)
[2020-10-12] MEDS: *HR* Heparin 5,000 UNIT/ML VIAL SQ SCH ×2 (05:52→16:36)
[2020-10-12 08:55] LABS: Basophils # 0.1 K/mcL (0.0-0.2); Basophils % 0.6 %; Eosinophils # 0.3 K/mcL (0.0-0.6); Eosinophils % 3.1 %; Hematocrit 45.6 % (37.5-50.1); Hemoglobin 15.1 g/dL (12.9-16.9); Immature Granulocytes % 0.4 % (0-4); Lymphocytes # 1.1 K/mcL (0.6-4.6); Lymphocytes % 10.5 %; Mean Corpuscular HGB Conc 33.1 g/dL (31.6-35.5); Mean Corpuscular Hemoglobin 32.2 pg (28.0-33.3); Mean Corpuscular Volume 97.2 fL (83.0-100.0); Mean Platelet Volume 10.5 fL (9.4-12.4); Neutrophils # 7.8 K/mcL (1.6-8.9); Platelet Count 160 K/mcL (140-400); Red Blood Count 4.69 M/mcL (4.19-5.50); Red Cell Distribution Width 12.4 % (11.5-14.5); Segmented Neutrophils % 75.4 %; White Blood Count 10.3 K/mcL (4.3-11.1)
[2020-10-12] MEDS: Aspirin Enteric Coated 81 MG Tablet PO SCH (13:07)
[2020-10-12] MEDS: Metoprolol XL (24 HR) Succ 25 MG TAB.ER.24H PO SCH (13:08)
[2020-10-12] MEDS: 0.9 % Sodium Chloride 1,000 ML IVC SCH (16:42)
[2020-10-13] MEDS: Acetaminophen IV 1,000 MG/100 ML BAG IVPB SCH ×5 (00:17→23:46)
[2020-10-13 01:36] LABS: Hematocrit 43.2 % (37.5-50.1); Hemoglobin 14.3 g/dL (12.9-16.9); Mean Corpuscular HGB Conc 33.1 g/dL (31.6-35.5); Mean Corpuscular Hemoglobin 32.7 pg (28.0-33.3); Mean Corpuscular Volume 98.9 fL (83.0-100.0); Mean Platelet Volume 10.8 fL (9.4-12.4); Platelet Count 149 K/mcL (140-400); Red Blood Count 4.37 M/mcL (4.19-5.50); Red Cell Distribution Width 12.2 % (11.5-14.5); White Blood Count 9.3 K/mcL (4.3-11.1)
[2020-10-13] MEDS: 0.9 % Sodium Chloride 1,000 ML IVC SCH ×3 (04:16→20:10)
[2020-10-13] MEDS: MetroNIDAZOLE 500 MG/100 ML 500 MG/100 ML BAG IVPB SCH ×3 (04:17→20:09)
[2020-10-13] MEDS: *HR* Heparin 5,000 UNIT/ML VIAL SQ SCH ×2 (06:07→17:48)
[2020-10-13] MEDS: Aspirin Enteric Coated 81 MG Tablet PO SCH (08:02)
[2020-10-13] MEDS: Metoprolol XL (24 HR) Succ 25 MG TAB.ER.24H PO SCH (08:03)
[2020-10-13] MEDS: Metoclopramide 10 MG/2 ML VIAL IVP SCH ×3 (12:48→23:50)
[2020-10-14] MEDS: MetroNIDAZOLE 500 MG/100 ML 500 MG/100 ML BAG IVPB SCH ×3 (03:31→20:54)
[2020-10-14] MEDS: Acetaminophen IV 1,000 MG/100 ML BAG IVPB SCH ×3 (05:34→17:29)
[2020-10-14] MEDS: Metoclopramide 10 MG/2 ML VIAL IVP SCH ×3 (05:57→17:30)
[2020-10-14] MEDS: *HR* Heparin 5,000 UNIT/ML VIAL SQ SCH ×2 (05:57→17:48)
[2020-10-14 06:34] LABS: Hemoglobin 14.8 g/dL (12.9-16.9); Mean Corpuscular HGB Conc 33.6 g/dL (31.6-35.5); Mean Corpuscular Hemoglobin 33.1 pg (28.0-33.3); Mean Corpuscular Volume 98.4 fL (83.0-100.0); Mean Platelet Volume 10.7 fL (9.4-12.4); Platelet Count 155 K/mcL (140-400); Red Blood Count 4.47 M/mcL (4.19-5.50); Red Cell Distribution Width 12.2 % (11.5-14.5); White Blood Count 10.1 K/mcL (4.3-11.1)
[2020-10-14 06:45] LABS: BUN/Creatinine Ratio 28 (6-26); Blood Urea Nitrogen 28 mg/dL (8-23); Calcium 9.2 mg/dL (8.6-10.3); Carbon Dioxide 36 mEq/L (23-29); Chloride 101 mEq/L (98-107); Glucose 91 mg/dL (70-105); Osmolality,Calculated 309 (280-300); Potassium 2.7 mEq/L (3.5-5.1); Sodium 147 mEq/L (136-145); eGFR For African Americans > 60 (> 60); eGFR For Non-African Americans > 60 (> 60)
[2020-10-14] MEDS ORDERED: Potassium Chloride 40 MEQ, Lidocaine 1% 2 ML in 0.9 % Sodium Chloride 500 ML IVPB ONE (07:21)
[2020-10-14] MEDS: Metoprolol XL (24 HR) Succ 25 MG TAB.ER.24H PO SCH (08:24)
[2020-10-14] MEDS: Aspirin Enteric Coated 81 MG Tablet PO SCH (08:24)
[2020-10-14] MEDS ORDERED: Lidocaine -MPF 1% 5 ML AMPUL INFILT ONE (08:43)
[2020-10-14 10:37] LABS: Triglycerides 94 mg/dL (< 150)
[2020-10-14] MEDS ORDERED: *HR* Dextrose 50 % in Water (Vial) 50 ML VIAL IVP PRN (11:13)
[2020-10-14] MEDS ORDERED: D5% in Water 1,000 ML IVC PRN (11:13)
[2020-10-14] MEDS ORDERED: Dextrose Gel 15 GM/37.5 ML TUBE PO PRN ×2 (11:13)
[2020-10-14] MEDS ORDERED: D10% in Water 500 ML IVC PRN (11:15)
[2020-10-14] MEDS ORDERED: Pantoprazole 40 MG VIAL IVP ONE (13:00)
[2020-10-14] MEDS: Insulin LISPRO 300 UNITS/3 ML VIAL SQ SCH ×3 (13:09→21:00)
[2020-10-14 15:00] LABS: Magnesium 1.7 mg/dL (1.6-2.6); Phosphorous 3.2 mg/dL (2.7-4.5)
[2020-10-14 16:32] LABS: BUN/Creatinine Ratio 28 (6-26); Blood Urea Nitrogen 27 mg/dL (8-23); Carbon Dioxide 34 mEq/L (23-29); Chloride 104 mEq/L (98-107); Glucose 91 mg/dL (70-105); Osmolality,Calculated 309 (280-300); Potassium 3.3 mEq/L (3.5-5.1); Sodium 147 mEq/L (136-145); eGFR For African Americans > 60 (> 60); eGFR For Non-African Americans > 60 (> 60)
[2020-10-14] MEDS ORDERED: Clinimix E 5%-15% SOLUTION 2,000 ML with MVI, adult with vitamin K 10 ML IVC SCH (17:00)
[2020-10-14] MEDS: Pantoprazole 40 MG VIAL IVP SCH (17:30)
[2020-10-15] MEDS: Acetaminophen IV 1,000 MG/100 ML BAG IVPB SCH ×4 (00:03→17:15)
[2020-10-15] MEDS: Metoclopramide 10 MG/2 ML VIAL IVP SCH ×4 (00:03→17:14)
[2020-10-15] MEDS: Insulin LISPRO 300 UNITS/3 ML VIAL SQ SCH ×6 (00:04→20:00)
[2020-10-15] MEDS: MetroNIDAZOLE 500 MG/100 ML 500 MG/100 ML BAG IVPB SCH ×3 (04:00→19:50)
[2020-10-15 05:15] LABS: Hematocrit 41.3 % (37.5-50.1); Hemoglobin 13.9 g/dL (12.9-16.9); Mean Corpuscular HGB Conc 33.7 g/dL (31.6-35.5); Mean Corpuscular Hemoglobin 33.6 pg (28.0-33.3); Mean Corpuscular Volume 99.8 fL (83.0-100.0); Mean Platelet Volume 10.3 fL (9.4-12.4); Platelet Count 142 K/mcL (140-400); Red Blood Count 4.14 M/mcL (4.19-5.50); Red Cell Distribution Width 12.4 % (11.5-14.5); White Blood Count 9.7 K/mcL (4.3-11.1)
[2020-10-15 05:34] LABS: BUN/Creatinine Ratio 28 (6-26); Blood Urea Nitrogen 25 mg/dL (8-23); Calcium 8.5 mg/dL (8.6-10.3); Carbon Dioxide 33 mEq/L (23-29); Chloride 104 mEq/L (98-107); Glucose 107 mg/dL (70-105); Magnesium 1.7 mg/dL (1.6-2.6); Osmolality,Calculated 305 (280-300); Phosphorous 3.1 mg/dL (2.7-4.5); Potassium 2.8 mEq/L (3.5-5.1); Sodium 145 mEq/L (136-145); eGFR For African Americans > 60 (> 60); eGFR For Non-African Americans > 60 (> 60)
[2020-10-15] MEDS: Pantoprazole 40 MG VIAL IVP SCH ×2 (06:25→17:14)
[2020-10-15] MEDS: *HR* Heparin 5,000 UNIT/ML VIAL SQ SCH ×2 (06:26→17:20)
[2020-10-15] MEDS ORDERED: Potassium Chloride 40 MEQ, Lidocaine 1% 2 ML in 0.9 % Sodium Chloride 500 ML IVPB ONE ×2 (07:00→13:00)
[2020-10-15] MEDS ORDERED: D5% in Water 1,000 ML IVC SCH (10:00)
[2020-10-15] MEDS ORDERED: Clinimix E 5%-15% SOLUTION 2,000 ML with MVI, adult with vitamin K 10 ML IVC SCH (17:00)
[2020-10-16] MEDS: Acetaminophen IV 1,000 MG/100 ML BAG IVPB SCH ×4 (00:14→18:18)
[2020-10-16] MEDS: Metoclopramide 10 MG/2 ML VIAL IVP SCH ×4 (00:16→18:08)
[2020-10-16 02:24] LABS: BUN/Creatinine Ratio 31 (6-26); Blood Urea Nitrogen 24 mg/dL (8-23); Carbon Dioxide 31 mEq/L (23-29); Chloride 106 mEq/L (98-107); Glucose 101 mg/dL (70-105); Magnesium 1.5 mg/dL (1.6-2.6); Osmolality,Calculated 298 (280-300); Phosphorous 3.9 mg/dL (2.7-4.5); Potassium 3.2 mEq/L (3.5-5.1); Sodium 142 mEq/L (136-145); eGFR For African Americans > 60 (> 60); eGFR For Non-African Americans > 60 (> 60)
[2020-10-16] MEDS: Insulin LISPRO 300 UNITS/3 ML VIAL SQ SCH ×6 (03:38→20:05)
[2020-10-16] MEDS: MetroNIDAZOLE 500 MG/100 ML 500 MG/100 ML BAG IVPB SCH ×3 (04:35→20:06)
[2020-10-16] MEDS: *HR* Heparin 5,000 UNIT/ML VIAL SQ SCH ×2 (04:46→18:07)
[2020-10-16] MEDS: Pantoprazole 40 MG VIAL IVP SCH ×2 (06:02→18:06)
[2020-10-16] MEDS ORDERED: Potassium Chloride 40 MEQ, Lidocaine 1% 2 ML in 0.9 % Sodium Chloride 500 ML IVPB ONE (08:22)
[2020-10-16] MEDS ORDERED: Clinimix E 5%-15% SOLUTION 2,000 ML with MVI, adult with vitamin K 10 ML IVC SCH (17:00)
[2020-10-17] MEDS: Insulin LISPRO 300 UNITS/3 ML VIAL SQ SCH ×7 (00:26→23:53)
[2020-10-17] MEDS: Metoclopramide 10 MG/2 ML VIAL IVP SCH ×3 (00:34→11:39)
[2020-10-17] MEDS: Acetaminophen IV 1,000 MG/100 ML BAG IVPB SCH ×2 (00:35→05:50)
[2020-10-17 02:39] LABS: BUN/Creatinine Ratio 28 (6-26); Blood Urea Nitrogen 23 mg/dL (8-23); Calcium 8.1 mg/dL (8.6-10.3); Carbon Dioxide 30 mEq/L (23-29); Chloride 104 mEq/L (98-107); Glucose 109 mg/dL (70-105); Magnesium 1.9 mg/dL (1.6-2.6); Osmolality,Calculated 288 (280-300); Phosphorous 3.3 mg/dL (2.7-4.5); Potassium 3.2 mEq/L (3.5-5.1); Sodium 137 mEq/L (136-145); eGFR For African Americans > 60 (> 60); eGFR For Non-African Americans > 60 (> 60)
[2020-10-17] MEDS: MetroNIDAZOLE 500 MG/100 ML 500 MG/100 ML BAG IVPB SCH (04:06)
[2020-10-17] MEDS: Pantoprazole 40 MG VIAL IVP SCH ×2 (05:36→18:54)
[2020-10-17] MEDS: *HR* Heparin 5,000 UNIT/ML VIAL SQ SCH ×2 (05:43→18:54)
[2020-10-17] MEDS ORDERED: Acetaminophen 325 MG TABLET PO PRN (10:41)
[2020-10-17] MEDS ORDERED: Clinimix E 5%-15% SOLUTION 2,000 ML with MVI, adult with vitamin K 10 ML IVC SCH (17:00)
[2020-10-17] MEDS ORDERED: Ondansetron 4 MG/2 ML VIAL IVP PRN (18:36)
[2020-10-17] MEDS: 0.9 % Sodium Chloride 1,000 ML IVC SCH (18:52)
[2020-10-18 02:28] LABS: BUN/Creatinine Ratio 29 (6-26); Blood Urea Nitrogen 22 mg/dL (8-23); Calcium 8.4 mg/dL (8.6-10.3); Carbon Dioxide 26 mEq/L (23-29); Chloride 106 mEq/L (98-107); Glucose 127 mg/dL (70-105); Magnesium 1.7 mg/dL (1.6-2.6); Osmolality,Calculated 289 (280-300); Phosphorous 2.7 mg/dL (2.7-4.5); Potassium 3.7 mEq/L (3.5-5.1); Sodium 137 mEq/L (136-145); eGFR For African Americans > 60 (> 60); eGFR For Non-African Americans > 60 (> 60)
[2020-10-18] MEDS: Insulin LISPRO 300 UNITS/3 ML VIAL SQ SCH ×5 (04:37→20:11)
[2020-10-18] MEDS: Pantoprazole 40 MG VIAL IVP SCH ×2 (05:21→18:09)
[2020-10-18] MEDS: *HR* Heparin 5,000 UNIT/ML VIAL SQ SCH ×2 (05:21→16:55)
[2020-10-18] MEDS ORDERED: Methylnaltrexone 12 MG/0.6 ML SYRINGE SQ ONE ×2 (07:14)
[2020-10-18] MEDS: 0.9 % Sodium Chloride 1,000 ML IVC SCH (09:04)
[2020-10-18] MEDS ORDERED: Clinimix E 5%-15% SOLUTION 2,000 ML with MVI, adult with vitamin K 10 ML IVC SCH (17:00)
[2020-10-19] MEDS: Insulin LISPRO 300 UNITS/3 ML VIAL SQ SCH ×6 (00:46→17:01)
[2020-10-19] MEDS: *HR* Heparin 5,000 UNIT/ML VIAL SQ SCH ×2 (05:21→17:11)
[2020-10-19] MEDS: Pantoprazole 40 MG VIAL IVP SCH ×2 (05:21→17:11)
[2020-10-19 12:02] LABS: BUN/Creatinine Ratio 27 (6-26); Blood Urea Nitrogen 23 mg/dL (8-23); Calcium 8.7 mg/dL (8.6-10.3); Carbon Dioxide 29 mEq/L (23-29); Chloride 106 mEq/L (98-107); Glucose 102 mg/dL (70-105); Magnesium 1.7 mg/dL (1.6-2.6); Osmolality,Calculated 292 (280-300); Phosphorous 2.9 mg/dL (2.7-4.5); Potassium 3.9 mEq/L (3.5-5.1); Sodium 139 mEq/L (136-145); eGFR For African Americans > 60 (> 60); eGFR For Non-African Americans > 60 (> 60)
[2020-10-20] MEDS: *HR* Heparin 5,000 UNIT/ML VIAL SQ SCH (05:47)
[2020-10-20] MEDS: Pantoprazole 40 MG VIAL IVP SCH (05:52)
[2020-10-20 07:01] VITALS: BP 129/74
[2020-10-20 10:37] LABS: BUN/Creatinine Ratio 24 (6-26); Blood Urea Nitrogen 24 mg/dL (8-23); Calcium 8.9 mg/dL (8.6-10.3); Carbon Dioxide 31 mEq/L (23-29); Chloride 103 mEq/L (98-107); Glucose 95 mg/dL (70-105); Magnesium 1.7 mg/dL (1.6-2.6); Osmolality,Calculated 290 (280-300); Phosphorous 3.3 mg/dL (2.7-4.5); Potassium 4.1 mEq/L (3.5-5.1); Sodium 138 mEq/L (136-145); eGFR For African Americans > 60 (> 60); eGFR For Non-African Americans > 60 (> 60)
== END 2020-10-20 12:27 | disposition home or self-care (01) | DRG 336 ==
LOC: EMEROOARM 09:20 → 3BNU 09:20 → SUATTDRO 11:31 → 3BNU 12:32 → SUATTDRO 10-08 13:08 → 3ANU 10-16 16:47
PROVIDERS: ADMIT Internal Medicine; ATTEND Internal Medicine